=== PATIENT | female | born 1965 | race Hispanic/Latino ===

== ENCOUNTER 2021-02-17 13:02 | Emergency (ER) | payer BC, SELFPAY ==
[2021-02-17 14:46] LABS: COVID19 -Nasal RAPID Negative (Negative)
--- NOTE | 2021-02-17 17:31 | ED.RECABL ---
HPI - Recheck/Abnormal Lab/Rx <RAUDEL Soni - Last Filed: 02/17/21 18:33> General Chief Complaint: Recheck/Abnormal Lab/Rx Stated Complaint: Needs PCR Test for Travel Time Seen by Provider: 02/17/21 17:19 Source: patient and family Mode of arrival: Ambulatory Limitations: no limitations History of Present Illness HPI narrative: The patient is a 55-year-old female the patient nonsmoker who presents to the emergency department for COVID testing. She lives in [place], has plans to go to [place] for a family emergency and was told she needed a PCR test to cross. She is fully vaccinated, presents with her who has the same complaint. She denies any fever cough or congestion. She denies any signs of COVID. She states that she has tried to get a PCR test at other facilities such as pharmacies, but was unable to get tested because she has no symptoms. Review of Systems <CRISTIAN Soni - Last Filed: 02/17/21 18:33> Review of Systems Narrative: GENERAL: see HPI HEENT: Denies sinus pain, ear pain, sore throat, difficulty swallowing, dizziness. RESPIRATORY: Denies dyspnea, cough, wheezing, hemoptysis, sputum. CARDIOVASCULAR: Denies chest pain, palpitations, orthopnea, edema, GASTROINTESTINAL: Denies nausea, vomiting, abdominal pain, diarrhea, constipation, melena. : Denies dysuria, frequency, incontinence, hematuria, urinary retention. MUSCULOSKELETAL: denies weakness, joint pain, or bony pain SKIN: Denies rash, skin lesions, or other NEUROLOGIC: Denies weakness, headache, numbness, change in speech, confusion, seizures, incoordination. PSYCHIATRIC: No concerning psychosocial issues. 12 point review of systems is negative except for those stated above Exam <ELZBIETA Soni-MOOK - Last Filed: 02/17/21 18:33> Narrative Exam Narrative: GENERAL: This is a well-nourished, well-developed patient, in No acute distress HEAD: Atraumatic. Normocephalic. No temporal or scalp tenderness. EYES: Pupils equal round and reactive. Extraocular motions intact. No scleral icterus. No injection or drainage. ENT: Nose without bleeding, purulent drainage or septal hematoma. wearing a mask. Airway patent. NECK: Trachea midline. No JVD or lymphadenopathy. Supple, nontender, no meningeal signs. CARDIOVASCULAR: Regular rate and rhythm RESPIRATORY: No cough. No increased respiratory effort. No accessory muscle use. EXTREMITIES: No clubbing, cyanosis, or edema. No joint tenderness, effusion, or edema noted. BACK: Nontender without deformity or crepitance. No flank tenderness. NEURO: AOx3. SKIN: No rash or erythema on visible skin Initial Vital Signs Initial Vital Signs: Vital Signs Temperature 98.1 F 02/17/21 18:08 Pulse Rate 61 02/17/21 18:08 Respiratory Rate 16 02/17/21 18:08 Blood Pressure 121/59 L 02/17/21 18:08 Pulse Oximetry 97 02/17/21 18:08 <Ken Vicente DO - Last Filed: 02/17/21 19:23> Initial Vital Signs Initial Vital Signs: Vital Signs Temperature 98.1 F 02/17/21 18:08 Pulse Rate 61 02/17/21 18:08 Respiratory Rate 16 02/17/21 18:08 Blood Pressure 121/59 L 02/17/21 18:08 Pulse Oximetry 97 02/17/21 18:08 Course <RAUDEL Soni - Last Filed: 02/17/21 18:33> Orders Ordered: ED Orders 02/17/21 14:27 COVID19 -Nasal swab/Pre-Proc Stat Vital Signs Vital signs: Vital Signs - 8 hr 02/17/21 18:08 Temperature 98.1 F Pulse Rate 61 Respiratory Rate 16 Blood Pressure 121/59 L Pulse Oximetry 97 <DO Pantera Reyes Last Filed: 02/17/21 19:23> Orders Ordered: ED Orders 02/17/21 14:27 COVID19 -Nasal swab/Pre-Proc Stat Vital Signs Vital signs: Vital Signs - 8 hr 02/17/21 18:08 Temperature 98.1 F Pulse Rate 61 Respiratory Rate 16 Blood Pressure 121/59 L Pulse Oximetry 97 MDM - Recheck/Abnormal Lab/Rx <RAUDEL Soni - Last Filed: 02/17/21 18:33> Lab Data Labs: Lab Results 02/17/21 Range/Units 14:27 SARS-CoV-2 (PCR) Negative (Negative) MDM Narrative Medical decision making narrative: The patient is a 55-year-old female who presents requesting PCR testing of coronavirus for travel. She test negative today. Has been hemodynamically stable throughout her stay in the ER, discussed follow-up with primary care provider if needed, coming back to ER for acute concerns. Patient has no questions or concerns upon discharge states understanding of return precautions as well as follow-up care. <Ken Vicente, - Last Filed: 02/17/21 19:23> Lab Data Labs: Lab Results 02/17/21 Range/Units 14:27 SARS-CoV-2 (PCR) Negative (Negative) Discharge Plan Departure Patient Disposition: Home Clinical Impression: Encounter for laboratory testing for COVID-19 virus Instructions: COVID-19: Testing and Tracing, About the COVID-19 Vaccine, Can COVID-19 be prevented? Activity Restrictions/Additional Instructions: thank you for trusting us with your care today. Today you had a negative COVID PCR test. Please follow-up with primary care provider when you get back home, please come back to the emergency department for any acute concerns <Ken Vicente DO - Last Filed: 02/17/21 19:23> Cosign ED Attending Cosignature Attestation: Dr Vicente Co-Sign Statement: I was available for consultation during this patient's emergency department visit. This chart is signed by myself for administrative purposes only. I did not have direct contact with this patient during this visit. They were seen independently by the APC.
[2021-02-17 18:08] VITALS: BP 121/59; PULSE 61; RESP 16; TEMP 36.7; O2SAT 97
== END 2021-02-17 18:10 | disposition home or self-care (01) ==
PROVIDERS: Emergency Provider Nurse Practitioner Family
DX: Z20.822 Contact with and (suspected) exposure to COVID-19 (principal)
CPT/HCPCS: 87635; 99281; C9803